=== PATIENT | male | born 1990 | race Caucasian/White ===

== ENCOUNTER → 2024-02-16 16:54 | Outpatient (REF) | payer OTHER, SELFPAY | LOC: RAD 16:54 | PROVIDERS: ATTENDING PHYSICIAN Student in an Organized Health Care Education/Training Program | DX: M79.602 Pain in left arm (principal) | CPT/HCPCS: 93971 ==

== ENCOUNTER → 2024-06-30 10:39 | Outpatient (REF) | payer OTHER, SELFPAY | LOC: HWRAD 10:39 | PROVIDERS: ATTENDING PHYSICIAN Physician Assistant Medical | DX: R05.3 Chronic cough (principal) | CPT/HCPCS: 71046 ==